=== PATIENT | male | born 1985 | race Caucasian/White ===

== ENCOUNTER 2024-12-02 12:05 | Inpatient (IN) | payer OTHER ==
[2024-12-02 12:38] VITALS: BMI 25.8
[2024-12-02] MEDS ORDERED: LOPERAMIDE HCL 2 MG CAPSULE PO PRN (13:32)
[2024-12-02] MEDS ORDERED: BENZONATATE 200 MG CAPSULE PO PRN (13:32)
[2024-12-02] MEDS ORDERED: MAGNESIUM HYDROX 2400MG/30ML ORAL SUSPENSION 30 ML CUP PO PRN (13:32)
[2024-12-02] MEDS ORDERED: IBUPROFEN 400 MG TABLET (FP) PO PRN (13:32)
[2024-12-02] MEDS ORDERED: guaiFENesin 600 MG TABLET.ER (FP) PO PRN (13:32)
[2024-12-02] MEDS ORDERED: POLYETHYLENE GLYCOL (HEALTHYLAX) 3350 17 GM PACKET PO PRN (13:32)
[2024-12-02] MEDS ORDERED: BISMUTH SUBSALICYLATE 262 MG/15 ML BTL PO PRN (13:32)
[2024-12-02] MEDS ORDERED: DICYCLOMINE HCL 10 MG CAPSULE PO PRN (13:32)
[2024-12-02] MEDS ORDERED: P-EPHED 60MG/TRIPROLIDI 2.5MG TABLET PO PRN (13:32)
[2024-12-02] MEDS ORDERED: IBUPROFEN 600 MG TABLET (FP) PO PRN (13:32)
[2024-12-02] MEDS ORDERED: MAG HYDROX/AL HYDROX/SIMETH 30 ML UNIT-DOSE CUP PO PRN (13:32)
[2024-12-02] MEDS ORDERED: BENZOCAINE/MENTHOL (CHLORASEPTIC ) LOZENGE MM PRN (13:32)
[2024-12-02] MEDS ORDERED: NICOTINE POLACRILEX 2 MG LOZENGE BC PRN (13:32)
[2024-12-02] MEDS ORDERED: ACETAMINOPHEN 325 MG TABLET (FP) PO PRN (13:32)
[2024-12-02] MEDS ORDERED: NALOXONE (NARCAN) HCL 4 MG/0.1 ML SPRAY NS PRN (13:32)
[2024-12-02] MEDS ORDERED: ONDANSETRON *ODT* 4 MG TABLET SL PRN (13:32)
[2024-12-02] MEDS ORDERED: methaDONE HCL 10 MG TABLET (FOR DETOX USE ONLY) PO PRN (15:30)
[2024-12-02] MEDS ORDERED: methaDONE HCL 10 MG TABLET (FOR DETOX USE ONLY) ONE (15:54)
[2024-12-02] MEDS: methaDONE HCL 10 MG TABLET (FOR DETOX USE ONLY) PO ONE (15:59)
[2024-12-02] MEDS: diazePAM 5 MG TABLET PO PRN (17:46)
[2024-12-02] MEDS: NICOTINE 14 MG/24 HOURS TOPICAL PATCH TD SCH (17:52)
[2024-12-02] MEDS: METHOCARBAMOL 500 MG TABLET PO PRN (21:53)
[2024-12-02] MEDS: buPROPion HCL 100 MG TABLET PO SCH (21:53)
[2024-12-02] MEDS: THIAMINE 100 MG TABLET PO SCH (21:53)
[2024-12-02] MEDS: GABAPENTIN 300 MG CAPSULE PO SCH (21:53)
[2024-12-02] MEDS: MELATONIN 5 MG TABLETS PO SCH (21:54)
[2024-12-02] MEDS: BUPRENORPHINE/NALOXONE 0.5 MG/0.125 MG FILM SL ONE (23:33)
[2024-12-03 10:15] LABS: HEMATOCRIT 39.7 % (35.4-49); HEMOGLOBIN 12.9 GM/dL (11.7-16.9); MCHC 32.6 g/dl (32.0-35.9); MEAN CELL VOLUME 88.9 fl (80-96); MEAN PLT VOLUME 8.3 fl (7.5-11.1); PLATELET COUNT 211 10^3/uL (134-434); RBC 4.46 M/mm3 (4.00-5.60); RDW 13.3 % (11.9-15.9); WHITE BLOOD COUNT 4.9 K/mm3 (4.0-10.0)
[2024-12-03] MEDS: CAPLYTA 42 MG PO SCH (10:26)
[2024-12-03] MEDS: PRENATAL VITAMINS W/ FOLIC ACID TABLET (FP) PO SCH (10:27)
[2024-12-03] MEDS: BUPRENORPHINE/NALOXONE 0.5 MG/0.125 MG FILM SL SCH (10:28)
[2024-12-03 11:57] LABS: POTASSIUM 4.7 mmol/L (3.5-5.1)
[2024-12-03 12:07] LABS: CALCIUM 9.2 mg/dL (8.5-10.1)
[2024-12-03 12:08] LABS: ALBUMIN 3.9 g/dl (3.4-5.0); BLOOD UREA NITROGEN 21.1 mg/dL (7-18)
[2024-12-03 12:11] LABS: CREATININE 0.8 mg/dL (0.55-1.3)
[2024-12-03 12:12] LABS: BILIRUBIN,TOTAL 0.4 mg/dL (0.2-1)
[2024-12-03 12:13] LABS: TOT PROT 6.8 g/dl (6.4-8.2)
[2024-12-03] MEDS: NICOTINE POLACRILEX 2 MG GUM BUC PRN (17:28)
[2024-12-03] MEDS: LUMATEPERONE TOSYLATE 42 MG PO SCH (21:42)
[2024-12-04] MEDS: methaDONE HCL 10 MG TABLET (FOR DETOX USE ONLY) PO ONE (10:08)
[2024-12-04] MEDS: BUPRENORPHINE/NALOXONE 2 MG/0.5 MG FILM PACKET SL SCH (10:09)
[2024-12-05] MEDS: BUPRENORPHINE/NALOXONE 4 MG/1 MG FILM PACKET SL SCH (09:33)
[2024-12-05] MEDS: NICOTINE 7 MG/24 HOURS TOPICAL PATCH TD ONE (12:24)
[2024-12-05] MEDS: clonazePAM 1 MG ODT TABLETS SL SCH (21:59)
[2024-12-06] MEDS: BUPRENORPHINE/NALOXONE 8 MG/2 MG FILM PACKET SL SCH (10:18)
[2024-12-06] MEDS: NICOTINE 21 MG/24 HOURS TOPICAL PATCH TD SCH (10:18)
[2024-12-06] MEDS: methaDONE HCL 10 MG TABLET (FOR DETOX USE ONLY) PO ONE (10:19)
[2024-12-06 13:07] VITALS: RESP 18
[2024-12-07 06:05] VITALS: BP 96/62; PULSE 78; TEMP 98
[2024-12-07] MEDS: BUPRENORPHINE/NALOXONE 8 MG/2 MG FILM PACKET SL SCH (09:34)
[2024-12-07] MEDS: NALOXONE (NYS OPIOID OVERDOSE PROGRAM) 4 MG/0.1 ML SPRAY NS SCH (11:07)
== END 2024-12-07 10:03 | disposition home or self-care (01) | DRG 773 ==
LOC: YASAS 12:05 → Y3N 15:19
PROVIDERS: ADMIT Allergy & Immunology; ATTEND Allergy & Immunology
PROC: HZ2ZZZZ Detoxification Services for Substance Abuse Treatment (ICD-10-PCS; principal; 2024-12-02)
DX: F11.23 Opioid dependence with withdrawal (principal); F14.20 Cocaine dependence, uncomplicated; F17.290 Nicotine dependence, other tobacco product, uncomplicated; F31.9 Bipolar disorder, unspecified
CPT/HCPCS: 36415; 80053; 80305; 80307; 85027; 86780; 93005; 93010